=== PATIENT | male | born 1995 | race Caucasian/White ===

== ENCOUNTER 2016-11-24 03:21 | Emergency (ER) | payer OTHER ==
[~2016-11-24] VITALS: Ht 180.3 cm; Wt 56.0 kg
[2016-11-24 03:23] VITALS: BP 142/77; PULSE 98; RESP 18; TEMP 97.9; O2SAT 100
[2016-11-24] MEDS ORDERED: METH36TA PO (03:41)
[2016-11-24 04:26] LABS: BACTERIA, URINE RARE /hpf; BLOOD, URINE NEG (NEG); COMMENT (UR) CULTURE INDICATED; CULTURE IF INDICATED CULTURE INDICATED; GLUCOSE,URINE NEG (NEG); HYALINE CAST, URINE 1 /lpf (RARE); KETONE, URINE NEG (NEG); MUCUS URINE FEW /lpf (OCC); NITRITE,URINE NEG (NEG); URINE COLOR YELLOW (YELLW/STRAW)
--- NOTE | 2016-11-24 04:42 | PD ---
HPI Chief Complaint: Complaint Time Seen by Provider: 03:45 Travel History International Travel<30 days: No Contact w/Intl Traveler<30days: No Traveled to known affect area: No History of Present Illness HPI 21-year-old boy arrives to the ER complaining of urinary retention. He has been unable to urinate for 7 hours. He reports a constant pressure-like pain in the pelvis. He takes sustained release methylphenidate. He's had no nausea vomiting or diarrhea. He's had no similar previous episode. He's had no testicular pain. No penile discharge reported. No constipation change in bowel habits. No perineal or perianal paresthesia to report. He has no back pain. He denies unprotected sexual intercourse. He's had no similar prior episode. [facility] Past Medical History ADHD: Yes Diminished Hearing: No Tetanus Vaccination: Unknown Influenza Vaccination: Yes Past Surgical History Surgical History: No Previous Surgery Social History Alcohol Use: No Tobacco Use: No Substance Use: No Allergies-Medications (Allergen,Severity, Reaction): Coded Allergies: No Known Allergies (Unverified , 11/24/16) Reported Meds & Prescriptions Reported Meds & Active Scripts Active Doxycycline Hyclate 100 Mg Cap 100 Mg PO BID Cipro (Ciprofloxacin HCl) 500 Mg Tab 500 Mg PO BID 5 Days Reported Methylphenidate ER 24 HR (Methylphenidate HCl) 36 Mg August 72 Mg PO ONCE Review of Systems Except as stated in HPI: all other systems reviewed are Neg General / Constitutional: No: Fever Physical Exam Narrative GENERAL: 21-year-old male pleasant well-nourished well-developed RECTAL: No asymmetry of the prostate or hard nodule. Somewhat boggy. Good rectal tone. SKIN: Warm and dry. HEAD: Atraumatic. Normocephalic. EYES: Pupils equal and round. No scleral icterus. No injection or drainage. ENT: No nasal bleeding or discharge. Mucous membranes pink and moist. NECK: Trachea midline. No JVD. CARDIOVASCULAR: Regular rate and rhythm. No murmur appreciated. RESPIRATORY: No accessory muscle use. Clear to auscultation. Breath sounds equal bilaterally. GASTROINTESTINAL: Minimal tenderness to palpation supra pubic abdomen. No flank tenderness. MUSCULOSKELETAL: No obvious deformities. No clubbing. No cyanosis. No edema. NEUROLOGICAL: Awake and alert. No obvious cranial nerve deficits. Motor grossly within normal limits. Normal speech. PSYCHIATRIC: Appropriate mood and affect; insight and judgment normal. Data Data Last Documented VS Vital Signs Date Time Temp Pulse Resp B/P Pulse Ox O2 Delivery O2 Flow Rate FiO2 11/24/16 03:23 97.9 98 18 142/77 100 Room Air Orders Urinalysis - C+S If Indicated (11/24/16 03:54) Urine Culture (11/24/16 04:10) Azithromycin Powd Pack (Zithromax Powd P (11/24/16 04:45) Ceftriaxone Inj (Rocephin Inj) (11/24/16 04:45) Doxycycline (Vibratab) (11/24/16 04:45) Sodium Chloride 0.9% Flush (Ns Flush) (11/24/16 04:45) Lidocaine 1% Inj (50 Ml) (Xylocaine 1% I (11/24/16 04:45) Labs Laboratory Tests Test 11/24/16 04:10 Urine Color YELLOW Urine Turbidity CLEAR Urine pH 6.0 Urine Specific [place] 1.022 Urine Protein TRACE mg/dL Urine Glucose (UA) NEG mg/dL Urine Ketones NEG mg/dL Urine Occult Blood NEG Urine Nitrite NEG Urine Bilirubin NEG Urine Urobilinogen LESS THAN 2.0 MG/DL Urine Leukocyte Esterase MOD Urine RBC 2 /hpf Urine WBC 10 /hpf Urine Bacteria RARE /hpf Urine Hyaline Casts 1 /lpf Urine Mucus FEW /lpf Microscopic Urinalysis Comment CULTURE INDICATED MDM Medical Decision Making Medical Screen Exam Complete: Yes Emergency Medical Condition: Yes Medical Record Reviewed: Yes Differential Diagnosis Side effect from methylphenidate, UTI, BPH, prostatitis Narrative Course A Castaneda catheter was placed in about 1000 cc of clear urine were collected. Urinalysis reveals a UTI. He may have prostatitis. We'll provide doxycycline prescription. Cipro will be prescribed for any cystitis. Follow up with urology. Pt is aware he may have to return to ER in a few hours for urinary retention. He nonetheless elects to go home without a Castaneda catheter. Diagnosis Primary Impression: Urinary retention Additional Impression: Cystitis Referrals: Faizan Durán MD, Bennett P. MD Thomas, Shawn Wayne DO Additional Instructions: You have a choice when it comes to health care, and we are glad that you chose [facility]. Hopefully, we have met your expectations on today's visit. You are welcome to return to [facility] at any time, as we are committed to meeting the health care needs of our community. Med/Other Pt SpecificInfo: Prescription(s) given Scripts Doxycycline Hyclate 100 Mg [id number] Mg PO BID #28 CAP Ref 0 Prov:Gianfranco Pagan MD 11/24/16 Ciprofloxacin (Cipro)500 Mg [id number] Mg PO BID 5 Days Ref 0 Prov:Gianfranco Pagan MD 11/24/16 Disposition: 01 DISCHARGE HOME Condition: Stable Gianfranco Pagan MD Nov 24, 2016 04:42
[2016-11-24] MEDS ORDERED: CIPR-9 PO (04:44)
[2016-11-24] MEDS ORDERED: DOXY100C PO (04:44)
[2016-11-24] MEDS ORDERED: AZITHROMYCIN PWD FOR SUSP 1 GM PACKET PO ONE (04:45)
[2016-11-24] MEDS ORDERED: SODIUM CHLORIDE 0.9% FLUSH 10 ML FLUSH IVF PRN (04:45)
[2016-11-24] MEDS ORDERED: cefTRIAXone 250 MG VIAL IM ONE (04:45)
[2016-11-24] MEDS ORDERED: LIDOCAINE HCL 1% 50 ML VIAL XX ONE (04:45)
[2016-11-24] MEDS ORDERED: DOXYCYCLINE HYCLATE 100 MG TAB PO ONE (04:45)
== END 2016-11-24 05:13 | disposition home or self-care (01) ==
LOC: NEPC 03:21
DX: R33.9 Retention of urine, unspecified (principal); N30.90 Cystitis, unspecified without hematuria; Z86.59 Personal history of other mental and behavioral disorders
CPT/HCPCS: 51702; 81001; 87086; 96372; 99283; J0696

== ENCOUNTER 2016-12-06 03:16 | Emergency (ER) | payer OTHER ==
[~2016-12-06] VITALS: Ht 182.9 cm; Wt 56.0 kg
[~2016-12-06 03:16] MED LIST: CIPR-9 PO; DOXY100C PO; METH36TA PO
[2016-12-06 03:18] VITALS: BP 136/82; PULSE 96; RESP 18; TEMP 97.4; O2SAT 100
--- NOTE | 2016-12-06 05:08 | PD ---
HPI Chief Complaint: Complaint Time Seen by Provider: 04:52 Travel History International Travel<30 days: No Contact w/Intl Traveler<30days: No Traveled to known affect area: No History of Present Illness HPI 21-year-old male here with complaint of inability to urinate. Patient states that he was seen here in our emergency department recently, per chart review this is 11/24. He had a catheter placed and had a UTI was discharged with Vioxx he and Cipro but did not want to go home with a catheter. In the interim he has been having difficulties urinating, now has not been able to urinate for the last 12-16 hours. Notes moderate cramping suprapubic abdominal pain and burning around the urethral meatus. PFSH Past Medical History ADHD: Yes Diminished Hearing: No Social History Alcohol Use: No Tobacco Use: No Substance Use: No Allergies-Medications (Allergen,Severity, Reaction): Coded Allergies: No Known Allergies (Unverified , 12/06/16) Reported Meds & Prescriptions Reported Meds & Active Scripts Active Doxycycline Hyclate 100 Mg Cap 100 Mg PO BID Reported Methylphenidate ER 24 HR (Methylphenidate HCl) 36 Mg August 72 Mg PO ONCE Review of Systems Except as stated in HPI: all other systems reviewed are Neg Physical Exam Narrative GENERAL: Well-appearing male in moderate distress SKIN: Focused skin assessment warm/dry. HEAD: . Normocephalic. EYES: No scleral icterus. No injection or drainage. ENT: Mucous membranes pink and moist. NECK: Supple CARDIOVASCULAR: Regular rate and rhythm. No murmur appreciated. RESPIRATORY: No accessory muscle use. Clear to auscultation. Breath sounds equal bilaterally. GASTROINTESTINAL: Abdomen soft, suprapubic distention GENITOURINARY: Normal external male genitalia, uncircumcised. When the foreskin is retracted patient has slight amount of discharge, smegma underneath the or skin MUSCULOSKELETAL: Normal gait NEUROLOGICAL: Awake and alert. Normal speech. PSYCHIATRIC: Appropriate mood and affect; insight and judgment normal. Data Data Last Documented VS Vital Signs Date Time Temp Pulse Resp B/P Pulse Ox O2 Delivery O2 Flow Rate FiO2 12/06/16 03:18 97.4 96 18 136/82 100 Orders Urinary Catheter Insert/Apply (12/06/16 04:42) Urinalysis - C+S If Indicated (12/06/16 04:42) Labs Laboratory Tests Test 12/06/16 04:55 Urine Color YELLOW Urine Turbidity CLEAR Urine pH 6.5 Urine Specific [place] 1.020 Urine Protein NEG mg/dL Urine Glucose (UA) NEG mg/dL Urine Ketones NEG mg/dL Urine Occult Blood NEG Urine Nitrite NEG Urine Bilirubin NEG Urine Urobilinogen LESS THAN 2.0 MG/DL Urine Leukocyte Esterase NEG Urine RBC LESS THAN 1 /hpf Urine WBC LESS THAN 1 /hpf Urine Bacteria RARE /hpf Microscopic Urinalysis Comment CULT NOT INDICATED MDM Medical Decision Making Medical Screen Exam Complete: Yes Emergency Medical Condition: Yes Medical Record Reviewed: Yes Differential Diagnosis 21-year-old male here with complaint of recurrent inability to urinate. Differential includes obstructive uropathy, urethral stricture, UTI, less likely BPH Narrative Course Patient unable to urinate and obviously has bladder distention on examination. Castaneda catheter was placed with return of urine. Urinalysis unremarkable. Diagnosis Primary Impression: Acute urinary retention Referrals: Byron Lay MD 1 week Urologist 1 week Additional Instructions: Follow-up with urologist as discussed. Disposition: 01 DISCHARGE HOME Condition: Stable Tatyana Wilson MD Dec 06, 2016 05:08
[2016-12-06 05:13] LABS: BACTERIA, URINE RARE /hpf; BLOOD, URINE NEG (NEG); GLUCOSE,URINE NEG (NEG); KETONE, URINE NEG (NEG); NITRITE,URINE NEG (NEG); PH, URINE 6.5 (5.0-8.5); URINE COLOR YELLOW (YELLW/STRAW)
[2016-12-06 05:15] LABS: COMMENT (UR) CULT NOT INDICATED; CULTURE IF INDICATED CULT NOT INDICATED
[2016-12-06 05:39] VITALS: BP 128/82; PULSE 83; RESP 18; O2SAT 100
== END 2016-12-06 06:12 | disposition home or self-care (01) ==
LOC: NEPE 03:16
DX: R33.9 Retention of urine, unspecified (principal); R10.30 Lower abdominal pain, unspecified
CPT/HCPCS: 51702; 81001

== ENCOUNTER 2017-06-16 23:38 | Emergency (ER) | payer OTHER ==
[~2017-06-16 23:38] MED LIST changes: -CIPR-9 PO
[2017-06-17] VITALS: BP 143/73; PULSE 99; RESP 16; TEMP 98.4; O2SAT 100
[2017-06-17] MEDS ORDERED: METH36 PO (00:31)
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
[2017-06-17 07:10] VITALS: BP 123/65; PULSE 71; RESP 16; TEMP 97.7; O2SAT 100
[2017-06-17 10:42] VITALS: BP 124/81; PULSE 66; RESP 18; O2SAT 100
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
--- NOTE | 2017-06-17 11:20 | PD ---
Data Data Last Documented VS Vital Signs Date Time Temp Pulse Resp B/P (MAP) Pulse Ox O2 Delivery O2 Flow Rate FiO2 06/17/17 10:42 66 18 124/81 (95) 100 06/17/17 07:10 97.7 Room Air Orders Orders Psych Screen (06/17/17 00:07) Drug Screen, Random Urine (06/17/17 00:07) Alcohol (Ethanol) (06/17/17 00:07) Diet Regular Basic (06/17/17 Breakfast) Ed Discharge Order (06/17/17 11:16) Labs Laboratory Tests Test 06/17/17 00:29 06/17/17 01:20 Ethyl Alcohol Level LESS THAN 3 MG/DL Urine Opiates Screen NEG Urine Barbiturates Screen NEG Urine Amphetamines Screen NEG Urine Benzodiazepines Screen NEG Urine Cocaine Screen NEG Urine Cannabinoids Screen NEG MDM Supervised Visit with PHIL: No Narrative Course Cleared by psychiatry. Stable for discharge. Diagnosis Primary Impression: Medical clearance for psychiatric admission Additional Impression: depression with SI Additional Instruction: Follow up with outpatient resources as discussed with psychiatry. Disposition: 01 DISCHARGE HOME Condition: Stable Lester Su MD Jun 17, 2017 11:20
[2017-06-17 11:40] VITALS: BP 124/81
== END 2017-06-17 11:40 | disposition home or self-care (01) ==
LOC: NEPD 23:38
DX: F43.25 Adjustment disorder with mixed disturbance of emotions and conduct (principal); F90.9 Attention-deficit hyperactivity disorder, unspecified type
CPT/HCPCS: 80307; 99284